=== PATIENT | female | born 1955 ===

== ENCOUNTER 2024-05-10 06:31 | Outpatient (RCR) | payer MEDICARE, OTHER, SELFPAY | END 2024-05-10 23:59 | disposition home or self-care (01) | LOC: RPT 06:31 | PROVIDERS: ATTENDING PHYSICIAN Physician Assistant; PRIMARYCARE PHYSICIAN Family Medicine | DX: M25.512 Pain in left shoulder (principal); M75.42 Impingement syndrome of left shoulder; M75.02 Adhesive capsulitis of left shoulder; Z73.6 Limitation of activities due to disability | CPT/HCPCS: 97010; 97110; 97140; 97162 ==

== ENCOUNTER 2024-05-26 06:36 | Outpatient (RCR) | payer MEDICARE, OTHER, SELFPAY | END 2024-05-26 23:59 | disposition home or self-care (01) | LOC: RPT 06:36 | PROVIDERS: ATTENDING PHYSICIAN Physician Assistant; PRIMARYCARE PHYSICIAN Family Medicine | DX: M25.512 Pain in left shoulder (principal); M75.42 Impingement syndrome of left shoulder; M75.02 Adhesive capsulitis of left shoulder | CPT/HCPCS: 97010; 97110; 97140 ==